=== PATIENT | male | born 1945 | race Caucasian/White ===

== ENCOUNTER 2023-06-12 05:11 | Emergency (ER) | payer OTHER, MEDICAID ==
[~2023-06-12] VITALS: Ht 177.8 cm; Wt 100.0 kg
[2023-06-12 05:30] VITALS: PULSE 116; RESP 20
[2023-06-12] MEDS ORDERED: PIPERACILLIN/TAZO 3.375G/50ML 50 ML IV ONE (05:30)
[2023-06-12] MEDS ORDERED: MIDAZOLAM HCL 100 MG in DEXT 5% WATER 80 ML IV ONE (05:30)
[2023-06-12] MEDS ORDERED: SODIUM CHLORIDE 0.9% 1,000 ML IV ONE (05:30)
[2023-06-12] MEDS ORDERED: VANCOMYCIN 1G PREMIX 200 ML IV ONE (05:30)
[2023-06-12] MEDS ORDERED: MIDAZOLAM HCL 100 MG in SODIUM CHLORIDE 0.9% 100 ML IV PRN (05:45)
[2023-06-12] MEDS ORDERED: FENTANYL 2500MCG/250ML PMX 250 ML IV ONE (05:45)
[2023-06-12] MEDS ORDERED: FENTANYL CITRATE 2,500 MCG in SODIUM CHLORIDE 0.9% 200 ML IV PRN (05:45)
[2023-06-12] MEDS ORDERED: NOREPINEPHRINE 8MG/250ML PMX 250 ML IV ONE (05:45)
[2023-06-12 05:56] VITALS: BP 54/33
[2023-06-12 06:14] LABS: BASOPHILS % 0.8 % (0.0-2.0); EOSINOPHILS % 1.6 % (0.0-5.0); HEMATOCRIT. 24.3 % (42.0-52.0); HEMOGLOBIN. 7.2 g/dL (14.0-18.0); LYMPHOCYTES % 43.8 % (20.0-50.0); MEAN CORPUSCULAR HGB CONC 29.7 g/dL (31.0-37.0); MEAN CORPUSCULAR VOLUME 111.2 fL (80.0-94.0); MEAN PLATELET VOLUME 8.1 fl (7.4-10.4); MONOCYTES % 2.6 % (2.0-8.0); NEUTROPHILS % 51.2 % (40.0-76.0); PLATELET 89 x1000/uL (130-400); RED BLOOD CELL COUNT 2.19 mill/uL (4.7-6.1); RED CELL DISTRIBUTION WIDTH 15.3 % (11.6-14.6); WHITE BLOOD COUNT 9.1 x1000/uL (4.5-11.0)
[2023-06-12] MEDS ORDERED: DOPAMINE 400MG PREMIX 250ML IV ONE (06:15)
[2023-06-12 06:18] LABS: ADD RBC MORPHOLOGY YES; DIFFERENTIAL COMMENT 1
[2023-06-12 06:28] LABS: ALANINE AMINOTRANSFERASE 123 IU/L (10-49); ALBUMIN 2.3 g/dL (3.2-4.8); ASPARTATE AMINOTRANSFERASE 114 IU/L (<34); BILIRUBIN TOTAL < 0.2 mg/dL (0.1-1.0); CALCIUM 10.7 mg/dL (8.7-10.4); CHLORIDE 118 mEq/L (98-107); CREATININE 3.4 mg/dL (0.6-1.3); GLUCOSE 177 mg/dL (70-105); PROTEIN TOTAL 4.4 g/dL (6.0-8.3); SODIUM 149 mEq/L (136-145); TROPONIN I HIGH SENSITIVITY 41 ng/L (3.0-53); UREA NITROGEN BLOOD 50 mg/dL (9-23)
[2023-06-12 06:53] LABS: INR 1.7; PROTHROMBIN TIME 17.5 sec (9.6-11.0)
[2023-06-12 07:10] LABS: LACTIC ACID 14.6 mmol/L (0.4-2.0)
[2023-06-12 07:12] LABS: CARBON DIOXIDE < 10 mEq/L (21-32); ETHANOL BLOOD < 10 mg/dL (<10); POTASSIUM 6.4 mEq/L (3.5-5.1)
[2023-06-12 07:35] LABS: PARTIAL THROMBOPLASTIN TIME 100.1 sec (23.4-31.0)
[2023-06-12 12:15] LABS: PLATELET ESTIMATE DECREASED
== END 2023-06-12 08:01 ==
LOC: ER 05:11
DX: I46.9 Cardiac arrest, cause unspecified (principal); I49.9 Cardiac arrhythmia, unspecified; Z88.5 Allergy status to narcotic agent; Z20.822 Contact with and (suspected) exposure to COVID-19
CPT/HCPCS: 80053; 80320; 82962; 83880; 83605; 83690; 85025; 85610; 85730; 86850; 86900; 86901; 87040; 84484; 87804 ×2; 36415; 84145; 92950; 31500 ×2; 93005; 36556; 96360; 99291; 87426; J3490; J7030; J1265; 94002; J2250; J3010; J7060; G0480